=== PATIENT | male | born 1975 | race American Indian/Alaskan Native ===

== ENCOUNTER 2023-08-30 23:43 | Emergency (ER) | payer OTHER, SELFPAY ==
[2023-08-30 23:55] VITALS: BP 124/79
--- NOTE | 2023-08-31 01:41 | ED.MUSCINJ ---
HPI-Injury
General
Chief Complaint: Musculo-Skeletal Complaint
Source: patient
Exam Limitations: none
Time Seen by Provider: 08/31/23 01:31
Nursing documentation reviewed up to this point in time: agreed with
Travel History
Have you had any contact with someone who has COVID-19?: No
Do you have any symptoms of coronavirus? Fever > 100 degrees, chills, cough, shortness of breath, sore throat, loss of taste or smell, muscle aches, or headache?: No
History of Present Illness-Injury
Is this injury a work related problem?: No
Is pt an associate of [facility]?: No
Initial Injury comments:
48-year-old male presents emerged from complaining of left second toe pain he is unaware if there is any injury. He noticed it was black and blue. He is diabetic. No fevers.
Past History
Past History
ED Past Medical History: NIDDM
ED Past Surgical History: Orthopedic (Neck)
Social History
Tobacco: Non-smoker
Alcohol: None
Drug: None
Living: with family
Review of Systems
Review of Systems
Allergies reviewed?: Yes
All Other Systems: Not applicable
Constitutional: Reports no symptoms
EENT: Reports no symptoms
Respiratory: Reports no symptoms
Cardiac: Reports no symptoms
ABD/GI: Reports no symptoms
: Reports no symptoms
Musculoskeletal: Reports joint pain
Skin: Reports no symptoms
Neurological: Reports no symptoms
Endocrine: Reports no symptoms
Hematologic/Lymphatic: Reports no symptoms
Psychiatric: Reports no symptoms
Phy Exam
Physical Exam
Physical Exam:
Physical Exam
General: no apparent distress, not acutely ill
Neck: supple. no meningeal signs. normal posterior pharynx
Heart: equal radial pulses.
HEENT: EOMI
Lungs: no acute respiratory distress.
Neuro: alert and oriented. no focal neurological deficits
Skin: no rash
Psychiatric: well kept. interactive and cooperative
Extremities: no edema. no calf tenderness. negative homans. good distal pulses, ecchymosis left distal phalanx second toe
Injury Course
Orders/Labs/Results
Orders:
Orders
08/31/23 00:00
CR Toe(s) Min 2 Vw Left Urgent
Reason For Exam: injury
Indicate Which Toe:: Second
MDM/Problems Addressed
Differential Diagnosis Includes:
Osteomyelitis, toe fracture, subungual hematoma
MDM/Problems Addressed:
48-year-old male with left second toe pain, likely contusion. Mild hematoma seen, subungual, trephination not indicated as nail lifts without difficulty.
Chronic conditions affecting care: DM
*Radiology
Radiology exam reviewed: radiology read reviewed (Left foot x-ray no fracture)
*Pulse Oximetry
Patient hypoxic: no
*EKG
Interpreted by ED Provider?: NA
*Cane Pusher Interpretation
Rate: Cane Pusher- N/A
*Critical Care Note
Total Time (30-74mins, 75-104mins- exclusive of procedures): Not Applicable
Patient Management
Social determinants of health affecting care: Living situation
Escalation/DeEscalation of care consider admission/obs:
Admit not indicated
ED Attending Note
-
Portions of this chart may have been created with voice recognition software.� Occasional wrong word or��sound alike� substitutions may have occurred due to the inherent limitations of voice recognition software.
Discharge Plan
Departure
Patient Disposition: Home (Routine Discharge)
Date of Disposition: 08/31/23
Time of Disposition: 01:47
Patient with high blood pressure during this ER visit?: Yes
Condition: Good
Discharge Problem:
Hematoma of left second toe
Instructions: Toe Injury, BLOOD PRESSURE
Prescriptions:
New
gabapentin 300 mg capsule
300 mg PO TID PRN (Reason: pain) Qty: 30 0RF
Referrals:
Alesia Hardy MD [Family Provider] - Call in 1-3 days for appt
Mackenzie Rocha DPM [Active] - Call in 1-3 days for appt
Interventions
Interventions:
*Risk Screen - Suicide Last Done: 08/30/23 23:55
*General Assessment Last Done: 08/30/23 23:55
*Neglect/Abuse Screening Last Done: 08/30/23 23:55
ED- Fall Risk Assessment Last Done: 08/30/23 23:55
*ED COVID-19 Vaccine History Last Done: 08/30/23 23:55
ED-Musculoskeletal Assessment Last Done: 08/31/23 01:37
Discharge Date and Time
Print Language: GUATEMALAN
[2023-08-31 01:46] LABS: Glucose - Point of Care 101 mg/dl (70-99)
== END 2023-08-31 02:22 | disposition home or self-care (01) ==
LOC: EMR 23:43
PROVIDERS: EMERGENCY PHYSICIAN Emergency Medicine; FAMILY PHYSICIAN Family Medicine
DX: S90.222A Contusion of left lesser toe(s) with damage to nail, initial encounter (principal); X58.XXXA Exposure to other specified factors, initial encounter; E11.9 Type 2 diabetes mellitus without complications
CPT/HCPCS: 99283; 73660; 82962